=== PATIENT | male | born 1975 | race Caucasian/White ===

== ENCOUNTER 2021-04-08 22:57 | Emergency (ER) | payer BC ==
[~2021-04-08] VITALS: Ht 175.3 cm; Wt 121.6 kg
[2021-04-08 23:00] VITALS: BP_SYST 149
--- NOTE | 2021-04-08 23:11 | NUR ---
Patient to ER bed 4 to gown for evaluation. Side rails up. Report given to SEJAL POWELL.
--- NOTE | 2021-04-08 23:18 | NUR ---
PT COMING IN WITH C/O RIGHT EAR AND RIGHT SIDED THROAT PAIN WHICH JUST STARTED THIS EVENING AROUND 6:30-7 PM. DENIES RECENT ILLNESS. PT STATES EAR IS THROBBING AND PAIN IS 8/10, NO DRAINAGE FROM EAR. AFEBRILE, NO N/V/D. PT ALSO DEVELOPED HOARSE VOICE THAT ALSO BEGAN AT THE SAME ONSET ON EAR AND THROAT PAIN. PT SITTING ON SIDE OF BED, BED IN LOWEST POSITION, AND LOCKED. NKA DENIES HX
--- NOTE | 2021-04-08 23:44 | NUR ---
COVID AND FLU SWABS COMPLETED AND TAKEN TO LAB
--- NOTE | 2021-04-08 23:44 | NUR ---
PT HAS HAD FLU AND COVID VACCINES
[2021-04-09] MEDS ORDERED: prednisoLONE 15 MG/5 ML UDC PO ONE (00:45)
--- NOTE | 2021-04-09 00:56 | NUR ---
STREP CULTURE COLLECTED AND TAKEN TO LAB
[2021-04-09] MEDS ORDERED: ACET12.55 PO (01:11)
[2021-04-09] MEDS ORDERED: IBUP100O22 PO (01:11)
[2021-04-09] MEDS ORDERED: PRELO PO (01:11)
[2021-04-09] MEDS ORDERED: PROMETHAZINE HCL/CODEINE 6.25-10 mg/5 mL UDC PO ONE (01:15)
[2021-04-09] MEDS ORDERED: IBUPROFEN 100 MG/5 ML UDC PO ONE (01:30)
[2021-04-09] MEDS ORDERED: LIDOCAINE VISCOUS 2%, 15 ML UDC MM ONE (01:30)
[2021-04-09 01:35] VITALS: BP_SYST 137
--- NOTE | 2021-04-09 01:35 | NUR ---
UNABLE TO REASS PAIN AFTER IBUPROFEN GIVEN DUE TO PT BEING D/C'ED AFTER GIVEN MED.
--- NOTE | 2021-04-09 01:36 | NUR ---
Patient given written and verbal discharge instructions and verbalizes understanding. ER MD discussed with patient the results and treatment provided. Patient in stable condition. ID arm band removed. Rx of TYLENOL WITH CODEINE, IBUPORFEN, AND PRELONE given. Patient educated on pain management and to follow up with PMD. Pain Scale 8. Opportunity for questions provided and answered. Medication side effect fact sheet provided.
== END 2021-04-09 01:36 | disposition home or self-care (01) ==
LOC: SED 22:57
DX: J02.8 Acute pharyngitis due to other specified organisms (principal); B97.89 Other viral agents as the cause of diseases classified elsewhere; Z79.899 Other long term (current) drug therapy; Z20.822 Contact with and (suspected) exposure to COVID-19
CPT/HCPCS: 86403; 86710; 87081; 87426; 99283; J2001; 36415